=== PATIENT | female | born 1980 | race Caucasian/White ===

== ENCOUNTER 2016-09-09 16:25 | Emergency (ER) | payer OTHER ==
[~2016-09-09] VITALS: Ht 157.5 cm; Wt 85.5 kg
[~2016-09-09 16:25] MED LIST: LEXA5TAB PO; OXYC-360 PO; PRENTAB72 PO
[2016-09-09 16:27] VITALS: BP 109/74; PULSE 99; RESP 20; TEMP 98.3; O2SAT 99
[2016-09-09] MEDS ORDERED: prenatal (16:55)
[2016-09-09] MEDS ORDERED: LEXA10TA PO (16:55)
[2016-09-09] MEDS ORDERED: DEXI60CA PO (16:55)
[2016-09-09] MEDS ORDERED: SODIUM CHLOR 0.9% 1000 ML INJ 1,000 ML IV SCH (17:07)
[2016-09-09] MEDS ORDERED: METOCLOPRAMIDE HCL 10 MG/2 ML VIAL IV PUSH ONE (17:15)
[2016-09-09] MEDS ORDERED: SODIUM CHLORIDE 0.9% FLUSH 10 ML FLUSH IV FLUSH PRN (17:15)
--- NOTE | 2016-09-09 17:51 | PD ---
HPI Chief Complaint: GI Complaint Time Seen by Provider: 17:46 Travel History International Travel<30 days: No Contact w/Intl Traveler<30days: No Traveled to known affect area: No History of Present Illness HPI Patient is a 36-year-old female presented to the emergency department for evaluation of nausea. Patient is 8 weeks and for the last 2 weeks she' s had extreme nausea, she has not vomited. She is currently followed by Dr. Devendra Becker, obstetrics. She has been on Zofran and then was placed on Diclegis. Patient has been drinking water and Gatorade and tolerating oral intake. She states that whenever she does eat or drink makes her feel nauseated. She does report occasional diarrhea but also has a history of IBS. No related complaints otherwise. No vaginal bleeding, spotting, abdominal pain or cramping. PFSH Past Medical History Medical History: Denies Significant Hx ?: LMP: 07/13/16 : 3 Para: 2 Past Surgical History Section: Yes Cholecystectomy: Yes Social History Alcohol Use: No Tobacco Use: No Substance Use: No Allergies-Medications (Allergen,Severity, Reaction): Coded Allergies: Latex (Verified Allergy, Severe, 09/09/16) Morphine (Verified Allergy, Severe, Hives, 09/09/16) Reported Meds & Prescriptions Reported Meds & Active Scripts Active Keflex (Cephalexin) 500 Mg Cap 500 Mg PO Q12H 7 Days Reported Dexilant (Dexlansoprazole) 60 Mg Cap 60 Mg PO DAILY [] Lexapro (Escitalopram Oxalate) 10 Mg Tab 10 Mg PO DAILY Review of Systems Except as stated in HPI: all other systems reviewed are Neg Gastrointestinal: Positive: Nausea Physical Exam Narrative GENERAL: Well-nourished, well-developed patient. SKIN: Focused skin assessment warm/dry. HEAD: Normocephalic. EYES: No scleral icterus. No injection or drainage. NECK: Supple, trachea midline. No JVD or lymphadenopathy. CARDIOVASCULAR: Regular rate and rhythm without murmurs, gallops, or rubs. RESPIRATORY: Breath sounds equal bilaterally. No accessory muscle use. GASTROINTESTINAL: Abdomen soft, non-tender, nondistended. Positive bowel sounds , no rebound, no guarding. MUSCULOSKELETAL: No cyanosis, or edema. BACK: Nontender without obvious deformity. No CVA tenderness. Data Data Last Documented VS Vital Signs Date Time Temp Pulse Resp B/P Pulse Ox O2 Delivery O2 Flow Rate FiO2 09/09/16 18:50 82 16 114/61 100 Room Air 09/09/16 16:27 98.3 Orders Basic Metabolic Panel (Bmp) (09/09/16 17:07) Complete Blood Count With Diff (09/09/16 17:07) Urinalysis - C+S If Indicated (09/09/16 17:07) Iv Access Insert/Monitor (09/09/16 17:07) Ecg Monitoring (09/09/16 17:07) Oximetry (09/09/16 17:07) Sodium Chlor 0.9% 1000 Ml Inj (Ns 1000 M (09/09/16 17:07) Sodium Chloride 0.9% Flush (Ns Flush) (09/09/16 17:15) Ed Urine Pregnancytest Poc (09/09/16 17:07) Metoclopramide Inj (Reglan Inj) (09/09/16 17:15) Urine Culture (09/09/16 17:27) Potassium Chloride (Kcl) (09/09/16 18:45) Labs Laboratory Tests Test 09/09/16 09/09/16 17:26 17:27 White Blood Count 8.1 TH/MM3 Red Blood Count 4.52 MIL/MM3 Hemoglobin 13.5 GM/DL Hematocrit 39.5 % Mean Corpuscular Volume 87.4 FL Mean Corpuscular Hemoglobin 29.9 PG Mean Corpuscular Hemoglobin 34.2 % Concent Red Cell Distribution Width 13.3 % Platelet Count 274 TH/MM3 Mean Platelet Volume 9.9 FL Neutrophils (%) (Auto) 64.2 % Lymphocytes (%) (Auto) 24.9 % Monocytes (%) (Auto) 9.3 % Eosinophils (%) (Auto) 1.3 % Basophils (%) (Auto) 0.3 % Neutrophils # (Auto) 5.2 TH/MM3 Lymphocytes # (Auto) 2.0 TH/MM3 Monocytes # (Auto) 0.7 TH/MM3 Eosinophils # (Auto) 0.1 TH/MM3 Basophils # (Auto) 0.0 TH/MM3 CBC Comment DIFF FINAL Differential Comment Sodium Level 137 MEQ/L Potassium Level 3.4 MEQ/L Chloride Level 105 MEQ/L Carbon Dioxide Level 23.4 MEQ/L Anion Gap 9 MEQ/L Blood Urea Nitrogen 5 MG/DL Creatinine 0.65 MG/DL Estimat Glomerular Filtration 104 ML/MIN Rate Random Glucose 70 MG/DL Calcium Level 9.2 MG/DL Urine Color YELLOW Urine Turbidity HAZY Urine pH 6.5 Urine Specific [place] 1.025 Urine Protein 30 mg/dL Urine Glucose (UA) NEG mg/dL Urine Ketones 40 mg/dL Urine Occult Blood TRACE Urine Nitrite NEG Urine Bilirubin NEG Urine Urobilinogen 4.0 MG/DL Urine Leukocyte Esterase LARGE Urine RBC 7 /hpf Urine WBC 28 /hpf Urine Squamous Epithelial 8 /hpf Cells Urine Bacteria OCC /hpf Urine Mucus MANY /lpf Microscopic Urinalysis Comment CULTURE INDICATED MDM Medical Decision Making Medical Screen Exam Complete: Yes Emergency Medical Condition: Yes Interpretation(s) Laboratory Tests Test 09/09/16 09/09/16 17:26 17:27 White Blood Count 8.1 TH/MM3 Red Blood Count 4.52 MIL/MM3 Hemoglobin 13.5 GM/DL Hematocrit 39.5 % Mean Corpuscular Volume 87.4 FL Mean Corpuscular Hemoglobin 29.9 PG Mean Corpuscular Hemoglobin 34.2 % Concent Red Cell Distribution Width 13.3 % Platelet Count 274 TH/MM3 Mean Platelet Volume 9.9 FL Neutrophils (%) (Auto) 64.2 % Lymphocytes (%) (Auto) 24.9 % Monocytes (%) (Auto) 9.3 % Eosinophils (%) (Auto) 1.3 % Basophils (%) (Auto) 0.3 % Neutrophils # (Auto) 5.2 TH/MM3 Lymphocytes # (Auto) 2.0 TH/MM3 Monocytes # (Auto) 0.7 TH/MM3 Eosinophils # (Auto) 0.1 TH/MM3 Basophils # (Auto) 0.0 TH/MM3 CBC Comment DIFF FINAL Differential Comment Sodium Level 137 MEQ/L Potassium Level 3.4 MEQ/L Chloride Level 105 MEQ/L Carbon Dioxide Level 23.4 MEQ/L Anion Gap 9 MEQ/L Blood Urea Nitrogen 5 MG/DL Creatinine 0.65 MG/DL Estimat Glomerular Filtration 104 ML/MIN Rate Random Glucose 70 MG/DL Calcium Level 9.2 MG/DL Urine Color YELLOW Urine Turbidity HAZY Urine pH 6.5 Urine Specific [place] 1.025 Urine Protein 30 mg/dL Urine Glucose (UA) NEG mg/dL Urine Ketones 40 mg/dL Urine Occult Blood TRACE Urine Nitrite NEG Urine Bilirubin NEG Urine Urobilinogen 4.0 MG/DL Urine Leukocyte Esterase LARGE Urine RBC 7 /hpf Urine WBC 28 /hpf Urine Squamous Epithelial 8 /hpf Cells Urine Bacteria OCC /hpf Urine Mucus MANY /lpf Microscopic Urinalysis Comment CULTURE INDICATED Vital Signs Date Time Temp Pulse Resp B/P Pulse Ox O2 Delivery O2 Flow Rate FiO2 09/09/16 17:24 Room Air 09/09/16 16:27 98.3 99 20 109/74 99 Room Air Differential Diagnosis Nausea versus hyperemesis gravidarum versus electrolyte abnormality versus UTI versus other Narrative Course Patient is a 36-year-old female presenting to emergency room for evaluation of nausea. Symptoms have been ongoing for 2 weeks. Patient's 8 weeks and has been receiving care thus far. She has no related complaints otherwise. Her vital signs are stable, abdominal exam is benign. We 'll check electrolytes, IV fluids ordered, nausea medication ordered. CBC is unremarkable Chemistry with potassium of 3.4, replaced with oral supplementation Urinalysis is indicative of urinary tract infection. Patient will be started on Keflex. 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 She is encouraged to maintain adequate fluid intake, diet as tolerated. Patient's spouse verbalized understanding of these instructions. Patient is stable for discharge. Diagnosis Primary Impression: UTI (urinary tract infection) Qualified Code: N39.0 - Urinary tract infection with hematuria, site unspecified Additional Impression: Nausea/vomiting in Referrals: Devendra Sibley MD 3 days Patient Instructions: First Trimester (ED), General Instructions, Urinary Tract Infection in (ED) Additional Instructions: Follow up with Dr. Sibley in 2-3 days Take medications as directed Maintain adequate fluid intake Return to Emergency Department for any new or worsening symptoms Med/Other Pt SpecificInfo: Prescription(s) given Scripts Cephalexin (Keflex)500 Mg [id number] Mg PO Q12H 7 Days Ref 0 Prov:Darlene Kent 09/09/16 Disposition: 01 DISCHARGE HOME Condition: Stable Darlene Kent Sep 09, 2016 17:51
[2016-09-09 17:54] LABS: AUTOMATED NEUTROPHIL # 5.2 TH/MM3 (1.8-7.7); BASOPHIL % 0.3 % (0.0-2.0); EOSINOPHIL # 0.1 TH/MM3 (0-0.4); EOSINOPHIL % 1.3 % (0.0-4.0); HEMATOCRIT 39.5 % (35.0-46.0); HEMO FLAGS DIFF FINAL; LYMPH % 24.9 % (9.0-44.0); MEAN CELL VOLUME 87.4 FL (80.0-100.0); MEAN CORPUSCULAR HEMOGLOBIN 29.9 PG (27.0-34.0); MEAN CORPUSCULAR HGB CONC 34.2 % (32.0-36.0); MONO % 9.3 % (0.0-8.0); NEUT % 64.2 % (16.0-70.0); PLATELET COUNT 274 TH/MM3 (150-450); RED BLOOD COUNT 4.52 MIL/MM3 (4.00-5.30); RED CELL DISTRIBUTION WIDTH 13.3 % (11.6-17.2); WHITE BLOOD COUNT 8.1 TH/MM3 (4.0-11.0)
[2016-09-09 18:02] LABS: BACTERIA, URINE OCC /hpf; BLOOD, URINE TRACE (NEG); COMMENT (UR) CULTURE INDICATED; CULTURE IF INDICATED CULTURE INDICATED; GLUCOSE,URINE NEG (NEG); KETONE, URINE 40 mg/dL (NEG); MUCUS URINE MANY /lpf (OCC); NITRITE,URINE NEG (NEG); PH, URINE 6.5 (5.0-8.5); SQUAMOUS EPITHELIAL CELL URINE 8 /hpf (0-5); URINE COLOR YELLOW (YELLW/STRAW)
[2016-09-09 18:38] LABS: BICARBONATE 23.4 MEQ/L (21.0-32.0); POTASSIUM 3.4 MEQ/L (3.5-5.1)
[2016-09-09] MEDS ORDERED: POTASSIUM CHLORIDE 10 MEQ CONTROLLED RELEASE TAB PO ONE (18:45)
[2016-09-09] MEDS ORDERED: CEPH-460 PO (18:48)
[2016-09-09 18:50] VITALS: BP 114/61; PULSE 82; RESP 16; O2SAT 100
== END 2016-09-09 19:03 | disposition home or self-care (01) ==
LOC: NEPD 16:25
DX: O23.41 Unspecified infection of urinary tract in pregnancy, first trimester (principal); B96.89 Other specified bacterial agents as the cause of diseases classified elsewhere; Z3A.08 8 weeks gestation of pregnancy
CPT/HCPCS: 80048; 81001; 84703; 85025; 87086; 96361; 96374; 99283; J2765; J7030

== ENCOUNTER 2017-04-17 02:48 | Inpatient (IN) | payer OTHER ==
[2017-04-17] VITALS (10 sets, daily range): BP systolic 107–125; BP diastolic 58–74; PULSE 62–93; RESP 17–18; TEMP 97.8–98.9; O2SAT 100
[~2017-04-17 02:48] MED LIST changes: +CEPH-460 PO; +DEXI60CA PO; +LEXA10TA PO; -LEXA5TAB PO; -OXYC-360 PO; -PRENTAB72 PO; +prenatal
[2017-04-17 03:43] LABS: AUTOMATED NEUTROPHIL # 6.1 TH/MM3 (1.8-7.7); BASOPHIL % 0.4 % (0.0-2.0); EOSINOPHIL # 0.1 TH/MM3 (0-0.4); EOSINOPHIL % 1.6 % (0.0-4.0); HEMATOCRIT 30.2 % (35.0-46.0); HEMO FLAGS DIFF FINAL; LYMPH % 20.3 % (9.0-44.0); LYMPHOCYTE # 1.8 TH/MM3 (1.0-4.8); MEAN CELL VOLUME 82.7 FL (80.0-100.0); MEAN CORPUSCULAR HEMOGLOBIN 26.9 PG (27.0-34.0); MEAN CORPUSCULAR HGB CONC 32.6 % (32.0-36.0); MONO % 8.5 % (0.0-8.0); NEUT % 69.2 % (16.0-70.0); PLATELET COUNT 283 TH/MM3 (150-450); RED BLOOD COUNT 3.65 MIL/MM3 (4.00-5.30); RED CELL DISTRIBUTION WIDTH 16.1 % (11.6-17.2); WHITE BLOOD COUNT 8.8 TH/MM3 (4.0-11.0)
[2017-04-17] MEDS ORDERED: CITRIC ACID-SODIUM CITRATE LIQ 30 ML UDC PO SCH (03:45)
[2017-04-17] MEDS ORDERED: ceFAZolin 2 GM PREMIX 50 ML IV SCH (03:45)
[2017-04-17] MEDS ORDERED: ceFAZolin INJ 1,000 MG VIAL ONE (03:59)
[2017-04-17] MEDS ORDERED: ONDANSETRON HCL 4 MG/2 ML VIAL IVP PRN (04:00)
[2017-04-17] MEDS ORDERED: OXYTOCIN 30 UNITS-500ML PREMIX 500 ML IV ONE (04:00)
[2017-04-17] MEDS ORDERED: MEASLES, MUMPS, RUBELLA VACCINE 0.5 ML VIAL SQ ONE (04:00)
[2017-04-17] MEDS ORDERED: ZOLPIDEM TARTRATE 5 MG TAB PO PRN (04:00)
[2017-04-17] MEDS ORDERED: KETOROLAC TROMETHAMINE 30 MG/ML (IVP) VIAL IV PUSH PRN (04:00)
[2017-04-17] MEDS ORDERED: SIMETHICONE 80 MG CHEWABLE TAB PO PRN (04:00)
[2017-04-17] MEDS ORDERED: KETOROLAC TROMETHAMINE 60 MG/2 ML (IM) VIAL IM PRN (04:00)
[2017-04-17] MEDS ORDERED: LACTATED RINGER'S 1000 ML IV ONE (04:00)
[2017-04-17] MEDS ORDERED: SODIUM CHLORIDE 0.9% FLUSH 5 ML FLUSH IV PRN (04:00)
[2017-04-17] MEDS ORDERED: oxyCODONE/ACETAMINOPHEN 5 MG/325 MG TAB PO PRN (04:00)
[2017-04-17] MEDS ORDERED: IBUPROFEN 600 MG TAB PO PRN (04:00)
[2017-04-17 04:01] LABS: BACTERIA, URINE RARE /hpf; BLOOD, URINE NEG (NEG); COMMENT (UR) CULT NOT INDICATED; CULTURE IF INDICATED CULT NOT INDICATED; GLUCOSE,URINE NEG (NEG); KETONE, URINE NEG (NEG); MUCUS URINE FEW /lpf (OCC); NITRITE,URINE NEG (NEG); PH, URINE 6.5 (5.0-8.5); SQUAMOUS EPITHELIAL CELL URINE 2 /hpf (0-5); URINE COLOR YELLOW (YELLW/STRAW)
[2017-04-17] MEDS ORDERED: EPIDURAL-DO NOT ADMINISTER ANTICOAGULANTS PRN (04:07)
[2017-04-17] MEDS ORDERED: EPIDURAL-NALOXONE HCL 0.4 MG/ML AMP IV PUSH PRN (04:07)
[2017-04-17] MEDS ORDERED: EPIDURAL-DIPHENHYDRAMINE HCL 50 MG/ML VIAL IV PUSH PRN (04:07)
[2017-04-17] MEDS ORDERED: EPIDURAL-DIPHENHYDRAMINE HCL 50 MG CAP PO PRN (04:07)
[2017-04-17] MEDS ORDERED: EPIDURAL-NO SYSTEMIC NARCOTICS PRN (04:07)
--- NOTE | 2017-04-17 05:14 | MH ---
cc: SENDY TERRELL DATE OF ADMISSION: 04/17/2017 ADMITTING DIAGNOSES 1. Term 2. Spontaneous rupture of membranes with meconium-stained fluid. 3. Previous section x 2. 4. Multiparity. HISTORY OF PRESENT ILLNESS The patient is a 37-year-old white female para 2-0-0-2, LMP of 07/13/2016, EDC of 04/19/2017. Her preop course was benign. She had spontaneous rupture of membranes this morning, meconium-stained fluid and presents for evaluation with mild contractions. PAST MEDICAL HISTORY PREVIOUS SURGERY C-sections in 2005 and 2011. MEDICATIONS Vitamins. ALLERGIES None. TRANSFUSIONS None. 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 Alcohol, tobacco and drugs are none. FAMILY HISTORY Noncontributory. PHYSICAL EXAMINATION GENERAL: This is a gravid white female in no distress. HEENT: Exam is normal. CHEST: Clear. HEART: Regular rate. BREASTS: Symmetrical. ABDOMEN: Gravid. EFW of 1300 grams. PELVIC EXAM: The cervix is fingertip, 60%, vertex ballottable. Ruptured, meconium-stained fluid on exam. EXTREMITIES: Normal. ASSESSMENT As above. PLAN She is now admitted for repeat section and desires a bilateral tubal interruption. I explained the procedure and she is aware that the tubal is permanent, non-reversible, small risk of failure and she would like to proceed. MD LORETO Gabriel/SSB /3:21 AM /4:57 AM
--- NOTE | 2017-04-17 05:54 | MP ---
cc: SENDY TERRELL DATE OF SURGERY 04/17/2017 PREOPERATIVE DIAGNOSES 1. Term with spontaneous rupture of membranes, meconium-stained fluid. 2. x2, 3. Advanced maternal age of 37. 4. Multiparity. POSTOPERATIVE DIAGNOSES 1. Term with spontaneous rupture of membranes, meconium-stained fluid. 2. x2, 3. Advanced maternal age of 37. 4. Multiparity. 5. Delivered. PROCEDURE 1. Repeat low transverse section. 2. Bilateral tubal interruption. ANESTHESIA Spinal. SURGEON Sendy Terrell MD ESTIMATED BLOOD LOSS About 500 cc. FLUIDS 2.1 liters crystalloid. OBJECTIVE FINDINGS Following the induction of adequate spinal anesthesia, the patient was prepped and draped supine on the operating room table in left lateral tilt position in sterile fashion with the bladder being drained via Aponte catheterization. The abdomen was opened through a Pfannenstiel incision using a knife to cut down through the skin to the fascia. The fascia was opened transversely, stripped from the muscles. The rectus muscle was split in the midline and the peritoneum opened without incident. The bladder flap was taken down sharply, retracted inferiorly with a Shirley blade, the lower uterine segment incised transversely with a knife and extended with blunt dissection, the membranes ruptured revealing meconium-stained fluid. Vacuum was applied to the occiput in the LOT position and used to gently lift the head through the uterine abdominal wound. The mouth was suctioned, the cord clamped and cut and the baby passed to the awaiting team, a viable, vigorous female. Apgars were 7 and 8, weight 6 pounds even. Cord blood was collected for typing. The placenta was collected for donation and the uterine cavity was wiped clean. The uterus was exteriorized and closed in two layers of running suture, the first with a running locking stitch of 0 Vicryl and the second with a running imbricating stitch of 0 Vicryl. The patient reconfirmed desire for tubal. The uterus was packed with a lap. The left fallopian tube was traced to the normal left ovary, a window made in the mesosalpinx with a Bovie and the vascular pedicle of the mesosalpinx clamped with two Kellys, the distal tube with a hemostat. The distal tube and fimbria were excised with scissors and sent for permanent study. The vascular pedicle of the fimbria was ligated with two free ties of 2-0 chromic, the proximal tube with 2-0 chromic and buried in the uterine fundus in Gaurav fashion. A second suture of 2-0 chromic was used to further affix the tube to the fundus. The exact same procedure was repeated on the right side. Posterior inspection was normal with the exception of a 4-cm posterior isthmic fibroid. Irrigation was now performed. No bleeding was evident. The bladder flap was closed with a running stitch of 3-0 Vicryl. The tubal ligation sites were inspected; they were intact with no bleeding. All laps and retractors were removed, counts were correct. The anterior peritoneum was closed with a running stitch of 2-0 Vicryl, the fascia with a running locking stitch of 0 Vicryl from corner to midline and tied, the subcu with a running 3-0 Vicryl and the skin with a running subcuticular 3-0 Monocryl. Dermabond applied. All counts were correct and the patient was awakened and taken to the recovery room in good condition. MD LORETO Gabriel/PALAK /5:15 AM /5:26 AM
[2017-04-17] MEDS: ACETAMINOPHEN 1000 MG/100 ML VIAL IV SCH ×3 (06:00→20:53)
[2017-04-17] MEDS ORDERED: OXYTOCIN 30 UNITS-500ML PREMIX 500 ML ONE (06:50)
[2017-04-17] MEDS ORDERED: SODIUM CHLORIDE 0.9% FLUSH 5 ML FLUSH IV SCH (09:00)
[2017-04-17] MEDS ORDERED: KETOROLAC TROMETHAMINE 60 MG/2 ML (IM) VIAL IM SCH (11:30)
[2017-04-17] MEDS: KETOROLAC TROMETHAMINE 30 MG/ML (IVP) VIAL IM SCH ×3 (11:45→23:33)
[2017-04-17] MEDS ORDERED: LACTATED RINGER'S 1000 ML INJ 1,000 ML IV SCH (13:04)
[2017-04-17] MEDS ORDERED: OXYTOCIN 30 UNITS-500ML PREMIX 500 ML IV PRN (18:15)
[2017-04-18 01:30] VITALS: BP 104/58; PULSE 88; RESP 18; TEMP 97.7
[2017-04-18 02:00] VITALS: BP 104/58; PULSE 88; RESP 18; TEMP 97.7
[2017-04-18] MEDS: KETOROLAC TROMETHAMINE 30 MG/ML (IVP) VIAL IM SCH (05:19)
[2017-04-18] MEDS: oxyCODONE/ACETAMINOPHEN 5 MG/325 MG TAB PO PRN ×3 (05:20→18:55)
[2017-04-18 08:00] VITALS: BP 100/67; PULSE 73; RESP 16; TEMP 98.2; O2SAT 98
[2017-04-18 09:26] LABS: AUTOMATED NEUTROPHIL # 6.6 TH/MM3 (1.8-7.7); BASOPHIL % 0.5 % (0.0-2.0); EOSINOPHIL # 0.1 TH/MM3 (0-0.4); EOSINOPHIL % 1.2 % (0.0-4.0); HEMATOCRIT 27.8 % (35.0-46.0); HEMO FLAGS DIFF FINAL; LYMPH % 14.9 % (9.0-44.0); LYMPHOCYTE # 1.3 TH/MM3 (1.0-4.8); MEAN CELL VOLUME 83.9 FL (80.0-100.0); MEAN CORPUSCULAR HEMOGLOBIN 27.5 PG (27.0-34.0); MEAN CORPUSCULAR HGB CONC 32.7 % (32.0-36.0); MONO % 8.7 % (0.0-8.0); NEUT % 74.7 % (16.0-70.0); PLATELET COUNT 265 TH/MM3 (150-450); RED BLOOD COUNT 3.31 MIL/MM3 (4.00-5.30); RED CELL DISTRIBUTION WIDTH 16.3 % (11.6-17.2); WHITE BLOOD COUNT 8.8 TH/MM3 (4.0-11.0)
[2017-04-18 09:45] LABS: BICARBONATE 25.3 MEQ/L (21.0-32.0); POTASSIUM 3.8 MEQ/L (3.5-5.1)
[2017-04-18] MEDS: KETOROLAC TROMETHAMINE 30 MG/ML (IVP) VIAL IV PUSH PRN ×2 (11:23→18:55)
[2017-04-18] MEDS: ESCITALOPRAM OXALATE 10 MG TAB PO SCH (11:23)
[2017-04-18] MEDS: DOCUSATE SODIUM 50 MG/SENNA 8.6 MG TAB PO PRN (11:23)
[2017-04-18 22:00] VITALS: BP 110/71; PULSE 77; RESP 18; TEMP 98.2
[2017-04-19] MEDS: KETOROLAC TROMETHAMINE 30 MG/ML (IVP) VIAL IV PUSH PRN (01:25)
[2017-04-19] MEDS: ESCITALOPRAM OXALATE 10 MG TAB PO SCH (08:45)
[2017-04-19] MEDS ORDERED: DIPHTH/TETANUS/ACEL PERTUSSIS (BOOSTER) 0.5 ML VIAL/PFS IM ONE (09:00)
[2017-04-19] MEDS ORDERED: IBUPROFEN 600 MG TAB PO ONE (10:45)
[2017-04-19] MEDS ORDERED: IBUPROFEN 600 MG TAB PO PRN (10:45)
[2017-04-19] MEDS: DOCUSATE SODIUM 50 MG/SENNA 8.6 MG TAB PO PRN (13:27)
[2017-04-19] MEDS: LACTATED RINGER'S 1000 ML IV SCH ×2 (16:00→19:30)
[2017-04-19] MEDS: IBUPROFEN 600 MG TAB PO PRN ×2 (16:57→22:55)
[2017-04-19 19:30] VITALS: BP 121/76; PULSE 75; RESP 16; TEMP 98.1; O2SAT 99
[2017-04-20] MEDS: IBUPROFEN 600 MG TAB PO PRN ×2 (04:57→11:28)
[2017-04-20] MEDS ORDERED: OXYC1TAB63 PO (10:09)
--- NOTE | 2017-04-20 10:09 | HHI.DCPOC ---
Discharge Care Plan Report Symptoms to Your Doctor -Temperature above 100.5 degrees -Redness, of incision or excessive or foul smelling drainage -Unusual pain or calf pain -Increased vaginal bleeding -Painful or difficulty urinating -Feelings of extreme sadness or anxiety after 2 weeks Goals to Promote Your Health * To prevent worsening of your condition and complications * To maintain your health at the optimal level Directions to Meet Your Goals Take your medications as prescribed Follow your dietary instruction Follow activity as directed Ensure plenty of rest for recovery Drink fluids for hydration Keep your appointments as scheduled Take your immunizations and boosters as scheduled If your symptoms worsen call your PCP, if no PCP go to Urgent Care Center or Emergency Room Smoking is Dangerous to Your Health. Avoid second hand smoke Call the 24-hour crisis hotline for domestic abuse at Devendra Sibley MD Apr 20, 2017 10:09
[2017-04-20] MEDS: ESCITALOPRAM OXALATE 10 MG TAB PO SCH (10:22)
--- NOTE | 2017-04-20 14:27 | MD ---
cc: SENDY TERRELL MD ADMISSION DATE: 04/17/2017 DISCHARGE DATE: 04/20/2017 DATE OF ADMISSION 04/17/2013. DATE OF DISCHARGE 04/20/2017 ADMISSION DIAGNOSIS Term spontaneous early labor. Previous section x2 multiparity. DISCHARGE DIAGNOSIS Term spontaneous early labor. Previous section x2 multiparity. plus delivered PROCEDURE Repeat low transverse section and bilateral tubal interruption on 04/17/2017 HISTORY OF PRESENT ILLNESS The patient is a 37-year-old white female para 2. She has no O2 with LMP of 07/13/2016, EDC of 04/19/2017. Her preop course was benign. She had two previous C-sections. She developed spontaneous rupture of membranes on the morning of 04/17/2017 early labor, underwent a repeat low section and bilateral tubal interruption with delivery of a viable vigorous female Apgars 07/08, weight 6 lbs even. DISCHARGE INSTRUCTIONS: did well, discharged home in good condition 1on 04/17/2017. She was advised NPV light activity, no driving return to see me in one week. She is to call me with abnormal pain, bleeding, temperature, signs of infection, depression. She was given scripts Percocet 5 mg one to two p.o. q.4 h. #30 MD LORETO Gabriel/ /10:12 AM /2:18 PM
== END 2017-04-20 13:02 | disposition home or self-care (01) | DRG 766 ==
LOC: HOBED 02:48 → H2EB 03:19 → H1EA 07:35
PROVIDERS: ADMIT Obstetrics & Gynecology; ATTEND Obstetrics & Gynecology
PROC: 10D00Z1 Extraction of Products of Conception, Low, Open Approach (ICD-10-PCS; principal; 2017-04-17)
PROC: 0UB70ZZ Excision of Bilateral Fallopian Tubes, Open Approach (ICD-10-PCS; 2017-04-17)
DX: O77.0 Labor and delivery complicated by meconium in amniotic fluid (principal); Z30.2 Encounter for sterilization; Z37.0 Single live birth; O34.211 Maternal care for low transverse scar from previous cesarean delivery; Z3A.40 40 weeks gestation of pregnancy
CPT/HCPCS: 80048; 80307; 81001; 84112; 85025; 85461; 86703; 86850; 86900; 86901; 88302; 90384; J0131; J0690; J1885; J2405; J2590; J2790; J7120